=== PATIENT | female | born 1985 | race Hispanic/Latino ===

== ENCOUNTER 2024-01-09 20:41 | Emergency (ER) | payer BC, SELFPAY ==
[2024-01-09 20:43] VITALS: BP 164/95
[2024-01-09 21:21] VITALS: BMI 36.6
--- NOTE | 2024-01-09 21:41 | ED.GENMED ---
History of Present Illness
General
Chief Complaint: Musculo-Skeletal Complaint
Source: patient
Time Seen by Provider: 01/09/24 21:25
Travel History
Have you had any contact with someone who has COVID-19?: No
Do you have any symptoms of coronavirus? Fever > 100 degrees, chills, cough, shortness of breath, sore throat, loss of taste or smell, muscle aches, or headache?: No
History of Present Illness
History of Present Illness:
This patient is a 38-year-old female who presents the emergency department with complaints of feeling discomfort in her neck for the past 3 weeks or so. She says she does not have any difficulty turning her head and she denies any trauma but she
says it feels a little bit 'sore, also described as 'inflamed. She went to get cupping done to help with this about a week after it started, and since then she notes not only continued neck discomfort but also radiation to the posterior occipital
area described as a 'headache'. This is a 'dull ache', and is manageable. Is not sudden onset or worst of life. Sometimes she feels the same discomfort across her upper shoulders radiating to her neck and head. Patient works as a banquet food server, and
does a lot of heavy lifting. Today, while at work, she told her friend about the pain, and was referred to the ER. She also notes that she had an episode of feeling a little lightheaded today, now fully resolved. She denies associated chest pain,
shortness of breath, nausea, vomiting, change in vision, change, change in balance. Patient notes that she also noticed episodes of tingling in her hands and arms bilaterally that started 2 days ago. She says it feels like a 'fire and then fades
away'. This last seconds at a time and then resolved completely. She denies associated numbness, weakness, clumsiness, or other complaints.
Past History
Past History
ED Past Medical History: None
ED Past Surgical History: None
Phy Exam
Physical Exam
Physical Exam:
GENERAL: Alert , in no apparent distress
EYE: pupils equal and reactive
NECK: Supple, no significant adenopathy, no midline tenderness, trachea midline, full range of motion easily without hesitation.
ENT: o/p clr, mmm.
CARDIAC: Regular rate and rhythm .
LUNGS: Clear breath sounds bilaterally, no acute respiratory distress, no wheezes/rales/rhonchi
ABDOMEN: Soft, without focal tenderness, no r/g, no cvat
NEUROLOGICAL: Alert and oriented, no focal neuro deficits, motor 5 out of 5, sensory intact, cranial nerves II through XII intact, [id number] normal
SKIN: Warm and dry, skin intact. Residual bruising from cupping on upper back noted
MUSCULOSKELETAL: No edema, well perfused.
PSYCH: Normal and appropriate interaction.
Course
Orders/Labs/Results
Orders:
Orders
01/09/24 20:47
Electrocardiogram (*1) Urgent
Reason for Study: Vertigo / Dizzy
EKG- Treatment ONCE
01/09/24 21:39
Ketorolac [Toradol] 15 mg IV NOW STA
Cervical Spine 4 or 5 Vw [CR Cervical Spine 4 Or 5 Vw] Urgent
Comment:
Reason For Exam: PAIN
01/09/24 22:27
Complete Blood Count/With Diff Urgent
Comprehensive Metabolic Panel Urgent
Abnormal Lab Results
01/09/24
22:27
Hct 34.2 L %
(37.0-47.0)
MCV 80.3 L fL
(81.0-99.0)
BUN 22 H mg/dl
(7-17)
Glucose 115 H mg/dl
(70-99)
01/09/24 22:27
01/09/24 22:27
Vital Signs
Initial and Last Documented VS:
Initial Vital Signs
Temp Pulse Resp BP Pulse Ox
98.1 F 100 18 164/95 100
01/09/24 20:43 01/09/24 20:43 01/09/24 20:43 01/09/24 20:43 01/09/24 20:43
Last Documented Vital Signs
Temp Pulse Resp BP Pulse Ox
98.1 F 71 20 130/85 98
01/09/24 20:43 01/09/24 22:34 01/09/24 22:34 01/09/24 22:34 01/09/24 22:34
*Critical Care Note
Total Time (30-74mins, 75-104mins- exclusive of procedures): Not Applicable
Update Note
Update Note:
Patient presents to the Emergency Department with ____neck pain and headache
Number and Complexity of Problems Addressed at the Encounter
� Chronic conditions affecting care:
� Acute Exacerbation and/or Progression of Chronic Illness:
� Differential Diagnosis includes: But not limited to muscular strain, tension headache, cervical stenosis, etc. etc.
Amount and/or Complexity of Data to be Reviewed and Analyzed
� I performed an independent evaluation of and my interpretation is:
EKG: read by me, nsr, nl rate, no ischemia
CT:
Xrays:Nonspecific reversal of cervical lordosis which may reflect muscle spasm. Otherwise unremarkable exam.
Laboratory Studies:unremkarkable
Other:
� Review of other/old records reveals:
� Clinical information was obtained by an independent historian:
� Prescriptions/Medications Considered but not given:
� Further testing considered but not performed:
Risk of Complications and/or Morbidity or Mortality of Patient Management
� Social determinants of health affecting care:
� Discussion with other providers (PCP, Hospitalists, Consultants, etc):
� Escalation of care including admission/observation vs risk of discharge considered:strongly doubt acute urgent cause of sxs, ecg/xray/labs unremkarable, no neuro findings/deficity, no swelling, no airway involvement, etc etc.
likley msk etiology D/w pt important of f/u and reasons to rted.
ED Attending Note
-
Portions of this chart may have been created with voice recognition software.� Occasional wrong word or��sound alike� substitutions may have occurred due to the inherent limitations of voice recognition software.
Discharge Plan
Departure
Patient Disposition: Home (Routine Discharge)
Date of Disposition: 01/09/24
Time of Disposition: 23:19
Patient with high blood pressure during this ER visit?: Yes
Condition: Good
Discharge Problem:
Neck pain
Instructions: Neck pain, Headache, Adult ED, BLOOD PRESSURE
Prescriptions:
No Action
alprazolam 0.25 MG tablet
0.25 mg PO Q8HPRN PRN (Reason: anxiety)
fluoxetine 10 MG capsule
30 mg PO DAILY
ashwagandha extract
1 tab PO DAILY
Referrals:
Brigid Song, ELLA [Family Provider] - Follow up in 2-3 days
Activity Restrictions/Additional Instructions:
IF YOU DEVELOP FEVER, CHILLS, VOMITING, WEAKNESS, CHEST PAIN, TROUBLE BREATHING, CHANGE IN VISION, WORSENING/PERSISTENT HEADACHE, OR OTHER WORRISOME SIGNS, GO TO THE ER IMMEDIATELY!
Interventions
Interventions:
*Risk Screen - Suicide Last Done: 01/09/24 20:43
*General Assessment Last Done: 01/09/24 20:43
*Neglect/Abuse Screening Last Done: 01/09/24 20:43
ED- Fall Risk Assessment Last Done: 01/09/24 21:21
*ED COVID-19 Vaccine History Last Done: 01/09/24 21:21
ED-Musculoskeletal Assessment Last Done: 01/09/24 21:21
Discharge Date and Time
Print Language: UKRAINIAN
[2024-01-09] MEDS: TORADOL 15 MG IV (22:29)
[2024-01-09 22:32] LABS: % Basophils 0.6 % (0-2); % Eosinophils 1.4 % (0-6); % Immature Granulocytes 0.4 % (0-0.5); % Lymphocytes 27.1 % (20.5-51.1); % Monocytes 5.6 % (1.7-9.3); % Neutrophils 64.9 % (42.2-75.2); Absolute Eosinophils 0.1 10^3/uL (0-0.7); Absolute Monocytes 0.4 10^3/uL (0.1-0.6); Absolute Neutrophils 4.7 10^3/uL (1.4-6.5); Hematocrit 34.2 % (37.0-47.0); Mean Corp Hgb Conc. 35.1 g/dL (33.0-37.0); Mean Corpuscular Hgb 28.2 pg (27.0-31.0); Mean Corpuscular Volume 80.3 fL (81.0-99.0); Nucleated Red Blood Cells % 0 %; Platelet Count 198 10^3/uL (130-400); Red Blood Cell Count 4.26 10^6/uL (4.20-5.40); Red Cell Dist. Width 14.1 % (11.5-14.5); White Blood Cell Count 7.2 10^3/uL (4.8-10.8)
[2024-01-09 22:34] VITALS: BP 130/85
[2024-01-09 22:59] LABS: ALT (SGPT) 19 U/L (0-35); AST (SGOT) 22 U/L (14-36); Alkaline Phosphatase 58 U/L (38-126); Blood Urea Nitrogen 22 mg/dl (7-17); Calcium 9.5 mg/dl (8.4-10.2); Carbon Dioxide 25 mmol/L (22-30); Chloride 105 mmol/L (98-107); Estimated Creatinine Clearance 119 ml/min; Glucose 115 mg/dl (70-99); Potassium 3.8 mmol/L (3.5-5.1); Sodium 137 mmol/L (135-145); Total Bilirubin 0.3 mg/dl (0.2-1.3); Total Protein 6.6 g/dl (6.3-8.2); eGFR > 60.00
[2024-01-10 00:36] VITALS: BP 111/69
== END 2024-01-10 00:39 | disposition home or self-care (01) ==
LOC: EMR 20:41
PROVIDERS: EMERGENCY PHYSICIAN Emergency Medicine; FAMILY PHYSICIAN Nurse Practitioner Family
DX: M54.2 Cervicalgia (principal)
CPT/HCPCS: 99283; 96374; 72050; 80053; 85025; 93005